=== PATIENT | male | born 1945 | race Caucasian/White ===

== ENCOUNTER → 2017-05-11 | Outpatient (CLI) | payer MEDICARE ==
[~2017-05-11] MED LIST: AMLODIPINE-BEN1 EACH PO; AMLODIPINE-BENA1 CA2 PO; APRESOLINE PO; BUMETANIDE1 MG PO; BUMEX PO; BUMEX1 MG PO; CORDARONE200 M1 PO; COREG PO; COREG12.5 M1 PO; COREG12.5 MG PO; COUMADIN PO; COUMADIN4 MG PO; HYDRALAZINE HC100 MG PO; IMDUR-ER30 M1 PO; IMDUR-ER60 M2 PO; ISOSORBIDE DINI10 MG PO; ISOSORBIDE DINI30 MG PO; ISOSORBIDE MONO30 M1 PO; LASIX PO; LEVAQUIN PO; LOSARTAN POTAS100 MG PO; NITRO SL; NITRODISC0.4 MG EXT; NITROSTAT0.4 MG; OMEPRAZOLE40 MG PO; PACERONE PO; PACERONE100 MG PO; PRAVACHOL PO; PRAVASTATIN SOD20 MG PO; PRILOSEC PO; PRILOSEC20 M1 PO; RANEXA500 MG PO; WARFARIN SODIUM2 M1 PO
--- NOTE | ~2017-05-11 | US38 ---
[facility] A Service of [facility] RADIOLOGY TEXT RESULTS PATIENT: SARA FIGUEROA LOCATION: SNIV : 47 UNIT #: [id number] AGE: [address]: Benigno Braga MD SEX: M ORDER DR: [id number] [facility] [address] [place], [place] [address] [id number] O MR#: [id number] Acc #: [id number] NAME: SARA FIGUEROA : 1945 SEX: M STUDY DATE/TIME: 05/11/2017 11:02 UNIT: SNIV ROOM: STUDY DESCRIPTION: US Carotid W/Doppler Unilatera Attending Physician: Benigno Braga M.D. Referring Physician: Benigno Braga M.D. Ordering Physician: Benigno Braga M.D. Primary Care Physician: Taylor Ha M.D. MEDICAL IMAGING REPORT This report is preliminary unless electronic signature is present EXAM Left carotid duplex HISTORY Left carotid endarterectomy 6 months ago. FINDINGS Duplex imaging of the left carotid artery was performed. The left common, internal and external carotid arteries are patent with no plaque or stenosis. Velocity in the left common carotid is 73, internal is 33 proximally, 42 mid portion, 68 distally, external is 51 cm/sec. Left vertebral artery is not visualized and may be occluded. Left ICA/CCA ratio is 0.9. IMPRESSION Normal appearance of the left internal and external carotid arteries post endarterectomy. Left vertebral artery is not visualized and may be occluded. Dictated by... Benigno Braga M.D. THIS IS AN ELECTRONICALLY VERIFIED REPORT Benigno Braga M.D. at 05/12/2017 11:49 AM /esa TD: 05/11/2017 20:38 JOB #: [id number] MEDICAL IMAGING REPORT Page 1 of 1 COPY
== END | disposition home or self-care (01) ==
LOC: SNIV 09:30
DX: I65.22 Occlusion and stenosis of left carotid artery (principal); Z98.890 Other specified postprocedural states
CPT/HCPCS: 93882